=== PATIENT | female | born 1960 | race Hispanic/Latino ===

== ENCOUNTER 2024-01-13 12:06 | Emergency (ER) | payer MEDICARE, SELFPAY ==
--- NOTE | ~2024-01-13 | XR_ITS ---
EXAMINATION: XR shoulder RT min 2V DATE: 01/13/2024 12:50 INDICATION: Right shoulder pain post fall TECHNIQUE: AP internally and externally rotated, AP oblique externally rotated and transscapular Y vi ews of the right shoulder were obtained. COMPARISON: None FINDINGS: Medial and posteriorly impacted otherwise nondisplaced fracture of the surgical neck of the proximal right humerus with secondary mild posterior and medial angulation consistent with a 1 part fracture. No other fractures identified. Right glenohumeral joint maintains a normal alignment of site from mil d widening of the cephalad aspect of the joint space suggesting the presence of a joint effusion. Nor mal alignment with mild osteoarthritis at the right acromioclavicular joint. Soft tissues are unremar kable. Calcified nodules in the right midlung with large calcified right paratracheal lymph nodes con sistent with old granulomatous disease. Moderate thoracic spondylosis. IMPRESSION: Impacted 1 fracture of the surgical neck the proximal right humerus. Reviewed, dictated and finalized at location A.
[2024-01-13 12:20] VITALS: BP 120/72; PULSE 69; RESP 18; TEMP 36.4; O2SAT 100
--- NOTE | 2024-01-13 12:28 | ED.UPPEXIN ---
HPI - Extremity Injury (Upper) General Chief Complaint: Fall Stated Complaint: Right Shoulder Pain Time Seen by Provider: 01/13/24 12:30 Source: patient, RN notes reviewed and old records reviewed Mode of arrival: ambulatory Limitations: no limitations History of Present Illness HPI narrative: 63-year-old female with history of cerebral palsy presents with her mom with complaints of right proximal humeral pain after falling. Denies any head, neck or back pain. Mom states the fall was unwitnessed. Unable to move her shoulder. Does have full range of motion of the elbow, wrist, strong workday consultant. Capillary refill under 2 seconds and positive radial pulse. Has taken a Tylenol for discomfort Other Extremity Injury: Right: shoulder Related Data Home Medications Medication Instructions Recorded Confirmed fenofibrate 160 mg tablet mg 01/13/24 irbesartan 300 tablet 01/13/24 mg-hydrochlorothiazide 12.5 mg tablet Allergies Allergy/AdvReac Type Severity Reaction Status Date / Time No Known Allergies Allergy Verified 01/13/24 12:27 Review of Systems Review of Systems: All systems reviewed & are unremarkable except as noted in HPI and below Constitutional: Constitutional: Reports no additional constitutional complaints Eyes: Eyes: Reports no additional eye complaints ENT: Reports system reviewed and no additional complaints, except as documented Cardiovascular: Cardiovascular: Reports no additional cardiovascular complaints, Denies chest pain and Denies dyspnea Respiratory: Respiratory: Reports no additional respiratory complaints, Denies chest congestion, Denies cough and Denies dyspnea Gastrointestinal: Gastrointestinal: Reports no additional gastrointestinal complaints, Denies abdominal pain, Denies nausea and Denies vomiting Musculoskeletal: Musculoskeletal: Reports as per HPI, Denies deformity, Reports arthralgias and Denies joint swelling Integumentary/Breasts: Skin/Breast: Reports system reviewed and no additional complaints, except as docu Neurologic: Reports system reviewed and no additional complaints, except as documented Psychiatric: Psychiatric: Reports no additional psychiatric complaints Allergic/Immunologic: Allergic/Immunologic: Reports no additional allergic/immunologic complaints [facility] Past Medical History Medical History (Updated 01/13/24 @ 19:01 by Roxanna Sidhu APRN) Cerebral palsy High cholesterol History of high blood pressure Social History Social History (Updated 01/13/24 @ 19:01 by Roxanna Sidhu APRN) Living arrangements: with family Gender identity (if verbalized by the patient): Female Comments At the time of my signature, I reviewed and agree with the nursing past medical, surgical, social, and family history. There is no relevant family history pertinent to the patient complaint. Exam Const: General: cooperative, healthy appearing, comfortable, no acute distress, well developed, alert and well nourished Nutritional Appearance: well nourished Orientation/consciousness: patient oriented x3 Limitations: no limitations HENMT: Head: normal to inspection Ears: hearing grossly normal bilaterally and external ears normal Face/Nose/Sinus: Normal external nose present, Normal nares present, Normal nasal mucous membranes and turbinates present, normal facial exam and face symmetric Face and sinus: normal facial exam and face symmetric Eyes: General: appearance normal, both eyes and all related structures Alignment and Position: alignment normal Periorbital: periorbital findings normal Pupils: Equal, round and reactive pupils present EOM: EOMs intact bilaterally Neck: Neck: normal visual inspection, full ROM, no lymphadenopathy and no meningeal signs Chest: Chest palpation & inspection: normal inspection of the chest Resp: Effort & Inspection: normal respiratory effort and able to speak in complete sentences Cardio: Rate: regular rate Rhythm: regular rhythm Back
== END 2024-01-13 13:32 | disposition home or self-care (01) ==
PROVIDERS: Emergency Provider Nurse Practitioner; PCP Internal Medicine Endocrinology, Diabetes & Metabolism
DX: S42.214A Unspecified nondisplaced fracture of surgical neck of right humerus, initial encounter for closed fracture (principal); W19.XXXA Unspecified fall, initial encounter; G80.9 Cerebral palsy, unspecified; E78.00 Pure hypercholesterolemia, unspecified; I10 Essential (primary) hypertension
CPT/HCPCS: 73030; 99214; A4565; G0463

== ENCOUNTER 2024-01-17 10:49 | Emergency (ER) | payer MEDICARE, SELFPAY ==
--- NOTE | ~2024-01-17 | XR_ITS ---
EXAMINATION: XR shoulder RT min 2V DATE: 01/17/2024 11:35 INDICATION: Right shoulder pain. TECHNIQUE: 4 views of right shoulder were obtained. COMPARISON: Right shoulder radiographs 01/13/2024 FINDINGS: There is a fracture of surgical neck of proximal right humerus with impaction. The glenohum eral joint is normal. There is mild acromioclavicular joint osteoarthritis. A calcified right lung no dule and calcified right hilar and mediastinal lymph nodes are consistent with old granulomatous dise ase. IMPRESSION: 1. Fracture of surgical neck of proximal right humerus again seen. Reviewed, dictated and finalized at location E.
[2024-01-17 10:59] VITALS: BP 129/77; PULSE 80; RESP 20; TEMP 36.2; O2SAT 98
--- NOTE | 2024-01-17 11:11 | ED.UPPEXIN ---
HPI - Extremity Injury (Upper) General Chief Complaint: Extremity Injury, Upper Stated Complaint: Right Shoulder Pain Time Seen by Provider: 01/17/24 11:11 Source: patient, family, RN notes reviewed and old records reviewed Mode of arrival: ambulatory Limitations: no limitations History of Present Illness HPI narrative: 63-year-old female presents to the [facility] with complaints of continued right shoulder pain. Was seen on the , 4 days ago, diagnosed with a proximal humeral fracture. Sling was placed, referred to Ortho Since discharge patient had fallen another time witnessed by mom. Mom states that she was in the kitchen wearing socks and slipped fell. Was concern that she injured her also more. Mom reports Tylenol has been controlling her discomfort very well. Has an appointment on with orthopedic Related Data Home Medications Medication Instructions Recorded Confirmed fenofibrate 160 mg tablet 160 mg DIRECTED 01/13/24 01/17/24 irbesartan 300 1 tablet DIRECTED 01/13/24 01/17/24 mg-hydrochlorothiazide 12.5 mg tablet Allergies Allergy/AdvReac Type Severity Reaction Status Date / Time No Known Allergies Allergy Verified 01/13/24 12:27 Review of Systems Review of Systems: All systems reviewed & are unremarkable except as noted in HPI and below Constitutional: Constitutional: Reports no additional constitutional complaints Eyes: Eyes: Reports no additional eye complaints ENT: Reports system reviewed and no additional complaints, except as documented Cardiovascular: Cardiovascular: Reports no additional cardiovascular complaints, Denies chest pain and Denies dyspnea Respiratory: Respiratory: Reports no additional respiratory complaints, Denies chest congestion, Denies cough and Denies dyspnea Gastrointestinal: Gastrointestinal: Reports no additional gastrointestinal complaints, Denies abdominal pain, Denies nausea and Denies vomiting Musculoskeletal: Musculoskeletal: Reports as per HPI Integumentary/Breasts: Skin/Breast: Reports system reviewed and no additional complaints, except as docu Neurologic: Reports system reviewed and no additional complaints, except as documented Psychiatric: Psychiatric: Reports no additional psychiatric complaints Allergic/Immunologic: Allergic/Immunologic: Reports no additional allergic/immunologic complaints PMFSH Past Medical History Medical History Cerebral palsy High cholesterol History of high blood pressure Social History Social History Living arrangements: with family Gender identity (if verbalized by the patient): Female Comments At the time of my signature, I reviewed and agree with the nursing past medical, surgical, social, and family history. There is no relevant family history pertinent to the patient complaint. Exam Const: General: cooperative, healthy appearing, comfortable, no acute distress, well developed, alert and well nourished Nutritional Appearance: well nourished Orientation/consciousness: patient oriented x3 Limitations: no limitations HENMT: Head: normal to inspection Ears: hearing grossly normal bilaterally and external ears normal Face/Nose/Sinus: Normal external nose present, Normal nares present, Normal nasal mucous membranes and turbinates present, normal facial exam and face symmetric Face and sinus: normal facial exam and face symmetric Eyes: General: appearance normal, both eyes and all related structures Alignment and Position: alignment normal Periorbital: periorbital findings normal Pupils: Equal, round and reactive pupils present EOM: EOMs intact bilaterally Neck: Neck: normal visual inspection, full ROM, no lymphadenopathy and no meningeal signs Chest: Chest palpation & inspection: normal inspection of the chest Resp: Effort & Inspection: normal respiratory effort and able to speak in c
== END 2024-01-17 11:59 | disposition home or self-care (01) ==
PROVIDERS: Emergency Provider Nurse Practitioner; PCP Internal Medicine Endocrinology, Diabetes & Metabolism
DX: S42.214A Unspecified nondisplaced fracture of surgical neck of right humerus, initial encounter for closed fracture (principal); W19.XXXA Unspecified fall, initial encounter; G80.9 Cerebral palsy, unspecified; I10 Essential (primary) hypertension; E78.00 Pure hypercholesterolemia, unspecified
CPT/HCPCS: 73030; 99214; G0463

== ENCOUNTER 2024-02-16 10:37 | Outpatient (CLI) | payer MEDICARE, SELFPAY ==
--- NOTE | ~2024-02-16 | XR_ITS ---
XR shoulder RT min 2V DATE: 02/16/2024 11:08 INDICATION: Fracture follow-up TECHNIQUE: 4 views COMPARISON: January 15, 2024 and January 13, 2024 right shoulder radiographs FINDINGS: No significant change in position or alignment is noted at the transverse surgical neck fra cture of the right humerus since January 17, 2024. Normal alignment at the acromioclavicular and glenohumeral joints. Osteopenia. Prominent calcified right azygous and subcarinal nodes and right upper lobe calcified pulmonary granu alexandra, consistent with old granulomatous disease. Aortic arch calcification. IMPRESSION: No significant change of surgical neck fracture of right humerus since 01/17/2024 Reviewed, dictated and finalized at location B. IMPRESSION: No significant change of surgical neck fracture of right humerus si nce 01/17/2024
== END 2024-02-16 10:38 | disposition home or self-care (01) ==
LOC: ANHIMG 10:39
PROVIDERS: PCP Internal Medicine Endocrinology, Diabetes & Metabolism; Visit Provider Physician Assistant Surgical
DX: S42.321A Displaced transverse fracture of shaft of humerus, right arm, initial encounter for closed fracture (principal); X58.XXXA Exposure to other specified factors, initial encounter
CPT/HCPCS: 73030

== ENCOUNTER 2024-09-06 15:34 | Emergency (ER) | payer MEDICARE, SELFPAY ==
--- NOTE | ~2024-09-06 | XR_ITS ---
[id number] Ordering provider: Roxanna Irby NP History: . fall . Comparison: None. FINDINGS: BONES: No acute fracture or dislocation. JOINT SPACES: Moderate narrowing of the medial and lateral compartment. SOFT TISSUES: Normal. IMPRESSION: No acute osseous abnormality left knee. Moderate osteoarthritic changes. Reviewed, dictated and finalized at location A. SETTER
[2024-09-06 15:53] VITALS: BP 106/67; PULSE 86; RESP 20; TEMP 36.2; O2SAT 99
--- NOTE | 2024-09-06 16:07 | ED_ITS ---
HPI - Extremity Injury (Lower) General Chief Complaint: Extremity Injury, Lower Stated Complaint: left knee/lower leg injury Time Seen by Provider: 09/06/24 16:17 Source: patient and RN notes reviewed Mode of arrival: ambulatory Limitations: no limitations History of Present Illness HPI Narrative: 64-year-old female with developmental disability presents with concern for left knee and lower leg injury. Mother reports she slipped on a rug. Reports her knee twisted. Reports she is favoring the leg and not wanting to put pressure on it. Reports she does not express pain well and has a high pain tolerance. MD complaint: knee injury Related Data Home Medications ?Medication ?Instructions ?Recorded ?Confirmed ?Last Taken ?Type fenofibrate 160 mg tablet 160 mg PO DIRECTED 01/13/24 09/06/24 Unknown History irbesartan 300 1 tablet PO DIRECTED 01/13/24 09/06/24 Unknown History mg-hydrochlorothiazide 12.5 mg tablet Allergies Allergy/AdvReac Type Severity Reaction Status Date / Time No Known Allergies Allergy Verified 09/06/24 15:49 Review of Systems Review of Systems: CONSTITUTIONAL: Denies malaise, chills, sweats, or fever. SKIN: Denies rash or itching, open skin, laceration, abrasion, redness, warmth, swelling. MUSCULOSKELETAL: Reports left knee pain NEUROLOGIC: Denies numbness, weakness All systems reviewed & are unremarkable except as noted in HPI and below PMFSH Past Medical History Medical History (Updated 09/06/24 @ 16:46 by Roxanna Irby NP) Hyperlipidemia History of high blood pressure High cholesterol Cerebral palsy Surgical History Surgical History (Updated 01/19/24 @ 14:09 by Aide Prabhakar) History of cholecystectomy Family History Family History (Updated 01/19/24 @ 14:10 by Aide Prabhakar) Father Arthritis Cancer Hypertension Diabetes mellitus Mother Hypertension Diabetes mellitus Social History Social History (Updated 01/19/24 @ 14:08 by Aide Prabhakar) Smoking status: Never smoker Alcohol intake: never Substance use: never Do You Feel Safe in your Home?: Yes Lack of Transportation: No Lack of Food: Never True Current Housing: I Have Housing Concerned About Future Housing: No Difficulty Paying Gas/Electric Bills: No Difficulty Paying for Meds: No Currently Unemployed: No Difficulty w/ Childcare or Family Care: No Living arrangements: with family Gender identity (if verbalized by the patient): Female Comments At time of signature, agree with nursing past medical, surgical, social and family history. There is no relevant family history pertinent to the presenting complaint Exam Narrative: GENERAL: Well-appearing, well-nourished, and in no acute distress. HEAD: Normocephalic, atraumatic. EYES: PERRLA, conjunctivae clear NECK: Supple. CHEST: Speaks in full sentences. No respiratory distress. HEART: Regular rate and rhythm. Normal and equal peripheral pulses. EXTREMITIES: Left knee has grossly normal strength and sensation, grossly normal range of motion. No edema or ecchymosis. Normal sensation with sensitivity to light touch and pain. No point tenderness. No open wounds, no skin tenting, no devitalized tissue or atrophy, no trophic changes, no obvious deformity, alignment normal, nearby joints and structures intact. Distal pulses palpable and equal bilaterally, skin warm, dry, pink. Capillary refill less than 3 seconds. SKIN: Warm, dry, no rash. NEURO: Alert and oriented x3. PSYCH: Normal mood and affect Course Course Emergency Course: Patient is aware of diagnosis, understands and agrees to treatment plan. Anticipatory guidance given. Patient agrees to follow-up as directed and is aware of reasons to seek care at the emergency department. Portions of this record may have been created with voice recognition software Level of Care: Express Care Visit Vital Signs Vital signs: Vital Signs Temperature 97.2 F L 09/06/24 15:53 Pulse Rate 86 09/06/24 15:53 Respiratory Rate 20 09/06/24 15:53 Blood Pressure 106/67 09/06/24 15:53 Pulse Oximetry 99 09/06/24 15:53 Oxygen Delivery Room Air 09/06/24 15:53 Temperature 97.2 F L 09/06/24 15:53 Pulse Rate 86 09/06/24 15:53 Respiratory Rate 20 09/06/24 15:53 Blood Pressure 106/67 09/06/24 15:53 Pulse Oximetry 99 09/06/24 15:53 Oxygen Delivery Room Air 09/06/24 15:53 Reviewed. MDM - Extremity Injury (Lower) MDM Narrative Medical decision making narrative: Patients injury and pain is consistent with musculoskeletal etiology. No signs of neurological or vascular compromise on exam. Compartments and tissues are soft without signs of compartment syndrome. Pain is felt appropriate for further evaluation on an outpatient basis. Imaging Data My impression: Images reviewed, interpreted by radiologist, agree, see report. Radiologist's impression: [id number] Ordering provider: Roxanna Irby NP History: . fall . Comparison: None. FINDINGS: BONES: No acute fracture or dislocation. JOINT SPACES: Moderate narrowing of the medial and lateral compartment. SOFT TISSUES: Normal. IMPRESSION: No acute osseous abnormality left knee. Moderate osteoarthritic changes. Critical Care Time Critical Care Time Critical Care Time: No Discharge Plan Discharge Clinical Impression: Acute knee pain Patient Disposition: Home, Self-Care Condition: Stable Instructions: Knee Sprain (ED) Additional Instructions: Avoid activities that cause pain until the pain subsides. Ice to the area 20-30 minutes 4-6 times a day Elevate above heart Elastic wrap as directed for comfort for the next 5-7 days Tylenol for lesser pain Ibuprofen regularly for the next 2-3 days for the inflammation Follow up with your primary care provider if the condition is not improving within 1 week. If the condition worsens with numbness, tingling, decrease sensation with weakness seek treatment in the emergency room immediately. Patient Language: [place] Prescriptions: No Action irbesartan-hydrochlorothiazide 300-12.5 mg tablet 1 tablet PO DIRECTED fenofibrate 160 mg tablet 160 mg PO DIRECTED Follow-up/Referrals: Graham,Jose Manuel Humphrey MD [Primary Care Provider] - Time of Disposition: 16:46
== END 2024-09-06 16:55 | disposition home or self-care (01) ==
PROVIDERS: Emergency Provider Nurse Practitioner; PCP Internal Medicine Endocrinology, Diabetes & Metabolism
DX: M25.562 Pain in left knee (principal); G80.9 Cerebral palsy, unspecified; I10 Essential (primary) hypertension; E78.5 Hyperlipidemia, unspecified; E78.00 Pure hypercholesterolemia, unspecified
CPT/HCPCS: 73560; 99213; G0463